=== PATIENT | female | born 1975 | race Caucasian/White ===

== ENCOUNTER 2021-10-01 12:54 | Emergency (ER) | payer SELFPAY ==
[2021-10-01 12:55] VITALS: BP 141/75; PULSE 93; RESP 14; TEMP 36.7; O2SAT 98; BMI 20.7
--- NOTE | 2021-10-01 13:16 | PC.NURSE ---
pt states she has a building pressure and points to the top of her nose between her eyes. She states it is a constant pressure and has been getting worse and worse in the last 6 months. She states she can no longer sleep on her back, only on her sides and she must switch from side to side. When she turns she feels like the pressure will shift from one side to the other. She has seen ENT Dr. Whitehead but feels she may have incorrectly described her pain as throat pain not sinus pain. She has tried sinus medications OTC including a steriod nasal spray and none of these have helped. Pt is appears very anxious, started crying. Informed pt that she is allowed to have support person at bedside.
--- NOTE | 2021-10-01 14:19 | ED.URI ---
HPI - URI/Sore Throat <MIAH Aguilera - Last Filed: 10/01/21 14:25> General Chief Complaint: Upper Respiratory Symptoms Stated Complaint: something on back of throat pushing down Time Seen by Provider: 10/01/21 14:04 Source: patient Mode of arrival: Ambulatory History of Present Illness HPI Narrative: This is a 46-year-old who presents to the emergency department complaining of of something pressing down from the top mouth. Patient states this started last night but on further questioning, patient states that she has been having this problem since October of 2020. Patient states that she has been worked up by your nose and throat, had CT scans, has not come to any conclusion onto why she is having the sensation. Patient states that it started as pain behind her left eye, and was causing her headaches, and then it progressed this pressure feeling in a top of her mouth. She denies any actual swelling or changes to the inside of her mouth, she denies any wound, she denies any fever, difficulty swallowing, difficulty talking, changes to her daily life. Patient states that this pain or the sensation of pressure has cause her to not sleep well, it affects her every day, but she does not know why she has this without any physical signs. Patient states she has had allergy tests, evaluated by ear nose and throat with a scope, CT scans, without any abnormal findings. Patient complains of pain daily, and does not know what to do about it. Related Data Allergies Allergy/AdvReac Type Severity Reaction Status Date / Time No Known Drug Allergies Allergy Verified 10/01/21 13:00 Review of Systems <MIAH Aguilera - Last Filed: 10/01/21 14:25> Review of Systems Narrative: General: denies fever, chills, malaise, sweats, fatigue Head/Neck: denies headache, neck pain, dizziness Eyes: denies visual changes, eye pain Cardio: denies chest pain, palpitations, edema Respiratory: denies dyspnea, cough, orthopnea GI: denies abdominal pain, nausea, vomiting, or diarrhea : denies dysuria, hematuria, urinary retention, frequency or incontinence MSK: denies joint pain, muscle weakness Skin: denies rash, itching, skin lesions or other Neuro: denies numbness, tingling Patient History <MIAH Aguilera - Last Filed: 10/01/21 14:25> Social History Smoking Status: Former smoker Smoking Status: Former smoker alcohol intake frequency: holidays/special occasions only Substance Use Type: marijuana Exam <MIAH Aguilera - Last Filed: 10/01/21 14:25> Narrative Exam Narrative: Independently reviewed vitals signs and nursing notes. General: cooperative, comfortable, in no acute distress, well developed and well groomed Head: atraumatic, symmetrical facial expressions Neck: supple, atraumatic, without lymphadenopathy. Eyes: pupils equal round and reactive, EOMI, conjunctiva normal Nose: nares patent, no rhinorrhea Mouth/Throat: uvula midline, moist mucus membranes, no or pharyngeal swelling or edema, symmetrical without any abnormal tissue Cardiovascular: regular rate and rhythm, no peripheral edema, warm extremities Respiratory: normal effort, able to speak in complete sentences, no audible wheezing, stridor, or rales. No retractions or tachypnea. GI: abdomen soft, nontender to palpation, nondistended, no masses, no exquisite tenderness with exam, without guarding or rebound. MSK: moves all extremities, ambulatory w/steady gait, neurovascularly intact, no weakness Skin: brisk capillary refill, no rash, no erythema Neuro: normal speech and cognition, A&O x3, normal tone Psych: mental status is grossly normal, congruent mood, normal affect, pleasant and cooperative Initial Vital Signs Initial Vital Signs: Vital Signs Temperature 98.1 F 10/01/21 12:55 Pulse Rate 93 H 10/01/21 12:55 Respiratory Rate 14 10/01/21 12:55 Blood Pressure 141/75 H 10/01/21 12:55 Pulse Oximetry 98 10/01/21 12:55 Course <MIAH Aguilera - Last Filed: 10/01/21 14:25> Vital Signs Vital signs: Vital Signs - 8 hr 10/01/21 12:55 Temperature 98.1 F Pulse Rate 93 H Respiratory Rate 14 Blood Pressure 141/75 H Pulse Oximetry 98 MDM - URI/Sore Throat <MIAH Aguilera - Last Filed: 10/01/21 14:25> MDM Narrative Medical decision making narrative: This is a 46-year-old female presents to the emergency department for 1 year of head pain and pressure. Patient has been worked up by ear nose and throat for this pain which started behind her left eye and caused daily headaches, and now it is causing pressure in the top of her mouse, patient states that it is hard for her to sleep, she is unable to sleep on the back of her head, there are no abnormal signs or symptoms on exam, patient denies any difficulty swallowing or with speech. There is no wound, posterior pharynx is not erythematous, uvula is midline without any obvious edema. Discussed limitations of the emergency department for evaluation of this problem that has already been fully worked up by CT imaging and your nose and throat. Recommend referral to Neurology from primary care provider or from Dr. Whitehead as he said he was willing to provide this referral. Patient was given 2 neurologist phone numbers to contact in case she does not need a referral to make an appointment. Recommend close follow-up with them to help her evaluate the etiology of her symptoms. Patient does not have any infectious signs or symptoms including fever, fatigue, vision changes, altered mental status, or any other symptoms other than her sensation of pressure in the top of her mouth. Patient is appropriate and amenable to discharge home. Vital signs are stable on repeat examination is unremarkable. Patient has been informed of results. Patient has been given strict return to ER precautions for any new or worsening symptoms. Patient understands to follow up closely with outpatient providers as instructed. Patient understands plan and agrees to discharge home. All questions and concerns answered at this time. Discharge Plan Departure Patient Disposition: Home Clinical Impression: Pain in the pharynx Instructions: Migraine -- Adult Activity Restrictions/Additional Instructions: *You have been diagnosed with throat pain of unknown etiology. Since you have been worked up by Ear Nose and Throat, and hand does not know what this problem is, please follow-up with Neurology and get a referral from Dr. Whitehead. Thank you for coming here, sorry I was unable to help you with your problem today. I hope that you can get to the bottom of this. If you develop high fever, airway closing, or any other acute concern, please come into the emergency department and we will be glad to see you. I have attached to neurologist below [address] [place], [address] in [place], please con CT and get an appointment with them. Otherwise if he return to Dr. Whitehead, or even call him and ask for referral, he might be able to do this over the phone without an actual visit. Wishing you the best. *What to do: *Please continue to take your regular medications as directed. [ ] New medication prescriptions sent to your pharmacy: [ ] [ ] New medication written as a paper prescription [ x] No new medications given *Please follow up with your primary care provider in 2-3 days, call for an appointment. Let them know you were seen in the Emergency Department and that we asked that you be seen for follow-up. We will electronically transmit a record of today's note if your PCP is in our system *If you do not have a primary care provider please contact [phone] to establish care with one of [facility] primary care providers. *Return to Emergency Department if you should have any new, worsening or concerning symptoms, such as [fever greater than 101F, chills, worsening pain, persistent vomiting or other bothersome symptoms] Referrals: Margarito Garcia MD [Primary Care Provider] - Elmer Whitehead MD [Physician] - Parminder Gentile MD [Non-Staff] - Dee Leon MD [Non-Staff] -
== END 2021-10-01 14:34 | disposition home or self-care (01) ==
PROVIDERS: Emergency Provider Nurse Practitioner Critical Care Medicine; PCP Student in an Organized Health Care Education/Training Program
DX: J39.2 Other diseases of pharynx (principal); Z87.891 Personal history of nicotine dependence
CPT/HCPCS: 99281